=== PATIENT | male | born 1945 | race Caucasian/White ===

== ENCOUNTER 2016-10-23 10:03 | Day surgery (SDC) | payer MEDICARE ==
[~2016-10-23] VITALS: Ht 177.8 cm; Wt 107.3 kg
[2016-10-23] MEDS ORDERED: SODIUM CHLORIDE 0.9% 1,000 ML IV ONE (10:39)
[2016-10-23] MEDS ORDERED: PLEASE ENTER HEIGHT AND WEIGHT MC SCH (11:30)
[2016-10-23] MEDS ORDERED: LOSA1TAB17 PO (12:21)
[2016-10-23] MEDS ORDERED: INSU100V8 SQ (12:21)
[2016-10-23] MEDS ORDERED: GLIP5TAB10 PO (12:21)
[2016-10-23] MEDS ORDERED: GABA600T2 PO (12:21)
[2016-10-23] MEDS ORDERED: OMEG100023 PO (12:21)
[2016-10-23] MEDS ORDERED: ASPI-496 PO (12:21)
[2016-10-23] MEDS ORDERED: DULO30CA2 PO (12:21)
[2016-10-23] MEDS ORDERED: CALC300T5 PO (12:22)
[2016-10-23] MEDS ORDERED: NIAC500T9 PO (12:22)
[2016-10-23] MEDS ORDERED: METF10002 PO (12:22)
[2016-10-23] MEDS ORDERED: MAGN400T36 PO (12:22)
[2016-10-23] MEDS ORDERED: DICL100G8 TP (12:22)
[2016-10-23] MEDS ORDERED: beta blocker PO (12:22)
[2016-10-23] MEDS ORDERED: HEPARIN 1,000 UNITS/ML, 10ML ONE (12:41)
[2016-10-23] MEDS ORDERED: BIVALIRUDIN 250 MG ONE (12:41)
[2016-10-23] MEDS ORDERED: NITROGLYCERIN 5 MG/ML, 10ML ONE (12:41)
[2016-10-23] MEDS ORDERED: FENTANYL PF 100 MCG/2ML ONE (12:41)
[2016-10-23] MEDS ORDERED: VERAPAMIL 2.5 MG/ML, 2ML ONE (12:41)
[2016-10-23] MEDS ORDERED: TICAGRELOR 90 MG TABLET ONE (12:41)
[2016-10-23] MEDS ORDERED: MIDAZOLAM 1 MG/ML, 5ML ONE (12:41)
[2016-10-23] MEDS ORDERED: LIDOCAINE 2%, 20ML ONE (12:42)
[2016-10-23 12:58] LABS: ASPARTATE AMINO TRANSFERASE 27 U/L (15-37); BLOOD UREA NITROGEN 28 mg/dL (7-18)
[2016-10-23] MEDS ORDERED: SODIUM CHLORIDE 0.9% 1,000 ML IV SCH (14:06)
[2016-10-23] MEDS ORDERED: ISOS30TA8 PO (15:38)
== END 2016-10-23 16:50 | disposition home or self-care (01) ==
LOC: CACL 10:03 → 5SO 13:41 → DCLOUNGE 16:31 → CACL 16:50
PROVIDERS: ATTEND Internal Medicine Cardiovascular Disease
DX: I25.119 Atherosclerotic heart disease of native coronary artery with unspecified angina pectoris (principal); I10 Essential (primary) hypertension; E11.9 Type 2 diabetes mellitus without complications; E78.1 Pure hyperglyceridemia; Z79.82 Long term (current) use of aspirin; Z72.89 Other problems related to lifestyle
CPT/HCPCS: 36415; 71020; 80053; 85025; 85610; 85730; 93306; 93458; 99156; 99157; C1769; C1894; J1644; J2250; J3010; J3490; Q9967; J0583

== ENCOUNTER → 2016-10-27 | Outpatient (CLI) | payer MEDICARE ==
[~2016-10-27] MED LIST: ASPI-496 PO; CALC300T5 PO; DICL100G8 TP; DULO30CA2 PO; GABA600T2 PO; GLIP5TAB10 PO; INSU100V8 SQ; ISOS30TA8 PO; LOSA1TAB17 PO; MAGN400T36 PO; METF10002 PO; NIAC500T9 PO; OMEG100023 PO; OMNIPAQUE 350 MG/ML, 100ML BOTTLE ONE; beta blocker PO
== END | disposition home or self-care (01) ==
LOC: CFH 14:25
PROVIDERS: ATTEND Thoracic Surgery (Cardiothoracic Vascular Surgery)
DX: I61.6 Nontraumatic intracerebral hemorrhage, multiple localized (principal); I10 Essential (primary) hypertension; I25.119 Atherosclerotic heart disease of native coronary artery with unspecified angina pectoris; E11.9 Type 2 diabetes mellitus without complications; E78.5 Hyperlipidemia, unspecified; E78.00 Pure hypercholesterolemia, unspecified
CPT/HCPCS: 70460; Q9967

== ENCOUNTER 2016-10-30 04:10 | Inpatient (IN) | payer MEDICARE ==
[2016-10-29 13:51] LABS: HEMATOCRIT 41.6 % (39.2-51.8); HEMOGLOBIN 13.9 g/dL (13.7-18.0); WHITE BLOOD COUNT 11.2 x10^3/uL (3.4-10)
[2016-10-29 14:02] LABS: ASPARTATE AMINO TRANSFERASE 21 U/L (15-37); BLOOD UREA NITROGEN 26 mg/dL (7-18)
[~2016-10-30] VITALS: Ht 177.8 cm; Wt 115.6 kg
[~2016-10-30 04:10] MED LIST changes: +ACET-1600 PO; +FISH1CAP PO; -OMNIPAQUE 350 MG/ML, 100ML BOTTLE ONE
[2016-10-30 04:20] VITALS: BP_SYST 146; BP_SYST 157; BP_SYST 170; BP_SYST 171; BP_DIAS 76; BP_DIAS 78; BP_DIAS 81
[2016-10-30 04:30] VITALS: BP_SYST 146; BP_SYST 165; BP_DIAS 76; BP_DIAS 79
[2016-10-30] MEDS ORDERED: ALBUMIN HUMAN 5% 500 ML IV ONE (04:30)
[2016-10-30] MEDS ORDERED: ATOR40TA78 PO (04:40)
[2016-10-30] MEDS ORDERED: ISOS30TA8 PO (04:40)
[2016-10-30] MEDS ORDERED: METO25TA4 PO (04:40)
[2016-10-30] MEDS ORDERED: METOPROLOL TARTRATE 25 MG TABLET PO ONE (05:00)
[2016-10-30 05:34] VITALS: BP_SYST 176; BP_DIAS 80; BP_DIAS 84
[2016-10-30] MEDS ORDERED: CHLORHEXIDINE MOUTHWASH 15 ML UDC MM SCH (06:00)
[2016-10-30] MEDS ORDERED: DO NOT GIVE MC SCH (06:00)
[2016-10-30] MEDS: MUPIROCIN OINT 2%, 22GM TP SCH ×2 (06:00→21:00)
[2016-10-30] MEDS ORDERED: ACETAMINOPHEN 325 MG TABLET PO PRN (06:00)
[2016-10-30] MEDS ORDERED: INSULIN ASPART 100 UNITS/ML, PEN SQ-INSULIN SCH (06:00)
[2016-10-30 06:34] VITALS: BP 164/75
[2016-10-30] MEDS ORDERED: MIDAZOLAM 10MG/2 ML ONE (06:51)
[2016-10-30] MEDS ORDERED: FENTANYL PF 1000 MCG/20ML ONE (06:51)
[2016-10-30] MEDS ORDERED: POTASSIUM CHLORIDE 80 MEQ, SODIUM BICARBONATE 8.4% 10 MEQ, MAGNESIUM SULFATE 0.5 GM, LI... IV PRN (07:30)
[2016-10-30] MEDS ORDERED: VANCOMYCIN 1,700 MG in SODIUM CHLORIDE 0.9% 250 ML IV PRN (07:30)
[2016-10-30] MEDS ORDERED: DEXMEDETOMIDINE 200 MCG in SODIUM CHLORIDE 0.9% 48 ML IV SCH (07:30)
[2016-10-30] MEDS ORDERED: REGULAR INSULIN 62.5 UNITS in SODIUM CHLORIDE 0.9% 249.375 ML IV PRN (07:30)
[2016-10-30] MEDS ORDERED: MANNITOL PMX 20% 500 ML IVPB PRN (07:30)
[2016-10-30] MEDS ORDERED: PHENYLEPHRINE 10 MG in SODIUM CHLORIDE 0.9% 249 ML IV PRN ×2 (07:30→12:29)
[2016-10-30] MEDS ORDERED: EPINEPHRINE 2 MG in SODIUM CHLORIDE 0.9% 248 ML IV SCH (07:30)
[2016-10-30] MEDS ORDERED: CEFUROXIME 1.5 GM in SODIUM CHLORIDE 0.9% 50 ML IVPB PRN (07:30)
[2016-10-30] MEDS ORDERED: ROCURONIUM 10 MG/ML ONE (08:07)
[2016-10-30] MEDS ORDERED: PROPOFOL 10 MG/ML, 20ML ONE (08:07)
[2016-10-30] MEDS ORDERED: SODIUM CHLORIDE FLUSH 10ML SYR IVF SCH (09:00)
[2016-10-30] MEDS ORDERED: HEPARIN 1,000 UNITS/ML, 10ML IV ONE (09:44)
[2016-10-30] MEDS ORDERED: PAPAVERINE 30 MG/ML, 2ML IVPush ONE (09:44)
[2016-10-30] MEDS ORDERED: PROTAMINE SULFATE 10 MG/ML, 25ML ONE (12:26)
[2016-10-30] MEDS ORDERED: ALBUMIN HUMAN 25% 50 ML ONE (12:26)
[2016-10-30] MEDS ORDERED: AMINOCAPROIC ACID 250 MG/ML, 20ML ONE (12:26)
[2016-10-30] MEDS ORDERED: CALCIUM CHLORIDE 10%, 10ML SYR ONE (12:26)
[2016-10-30] MEDS ORDERED: SODIUM BICARB 8.4%, 50ML SYRINGE ONE (12:26)
[2016-10-30] MEDS ORDERED: LIDOCAINE 2% 100MG/5ML SYRINGE ONE (12:27)
[2016-10-30] MEDS ORDERED: HEPARIN 1,000 UNITS/ML, 10ML ONE (12:27)
[2016-10-30] MEDS ORDERED: PAPAVERINE 30 MG/ML, 2ML ONE (12:27)
[2016-10-30] MEDS ORDERED: VASOPRESSIN 20 UNIT/ML, 1ML ONE (12:27)
[2016-10-30] MEDS ORDERED: HEPARIN 1,000 UNITS/ML, 30ML ONE (12:27)
[2016-10-30] MEDS ORDERED: DOBUTAMINE 250 MG in SODIUM CHLORIDE 0.9% 230 ML IV PRN (12:29)
[2016-10-30] MEDS ORDERED: SODIUM CHLORIDE 0.9% 1,000 ML IV PRN (12:29)
[2016-10-30] MEDS ORDERED: SODIUM CHLORIDE 0.9% 1,000 ML IV ONE (12:29)
[2016-10-30] MEDS ORDERED: NITROGLYCERIN/D5W PMX 250 ML IV PRN (12:29)
[2016-10-30] MEDS ORDERED: LACTATED RINGERS 500 ML IVBOLUS PRN (12:30)
[2016-10-30] MEDS ORDERED: BISACODYL 10 MG SUPP PR PRN (12:30)
[2016-10-30] MEDS ORDERED: DEXTROSE 50%, 50ML SYRINGE IVPush PRN (12:30)
[2016-10-30] MEDS ORDERED: DEXTROSE 4 GM TAB.CHEW PO PRN (12:30)
[2016-10-30] MEDS ORDERED: PROCHLORPERAZINE 5 MG/ML, 2ML IVPush PRN (12:30)
[2016-10-30] MEDS: KSCALE TO 4.5 IV SCH ×2 (12:30→18:30)
[2016-10-30] MEDS ORDERED: MEPERIDINE/PF 25MG/0.5ML IVPush PRN (12:30)
[2016-10-30] MEDS ORDERED: SODIUM BICARB 8.4%, 50ML SYRINGE IV PRN (12:30)
[2016-10-30] MEDS ORDERED: BISACODYL 5 MG EC TABLET PO PRN (12:30)
[2016-10-30] MEDS ORDERED: ACETAMINOPHEN 650 MG SUPP PR PRN (12:30)
[2016-10-30] MEDS ORDERED: GLUCAGON 1 MG IM PRN (12:30)
[2016-10-30] MEDS ORDERED: ONDANSETRON 2MG/ML, 2ML IVPush PRN (12:30)
[2016-10-30] MEDS ORDERED: MIDAZOLAM 1 MG/ML, 5ML IVPush PRN (12:30)
[2016-10-30] MEDS ORDERED: EPINEPHRINE 2 MG in SODIUM CHLORIDE 0.9% 248 ML IV PRN (12:30)
[2016-10-30 12:59] LABS: ABG COLLECTION SITE ARTERIAL LINE
[2016-10-30 13:00] LABS: HEMATOCRIT 31.9 % (39.2-51.8); HEMOGLOBIN 10.7 g/dL (13.7-18.0)
[2016-10-30] MEDS: MAGNESIUM SULFATE 1 GM in SODIUM CHLORIDE 0.9% 50 ML IVPB SCH (13:05)
[2016-10-30] MEDS: DEXMEDETOMIDINE 200 MCG in SODIUM CHLORIDE 0.9% 48 ML IV PRN (14:28)
[2016-10-30 17:14] VITALS: BP 119/52
[2016-10-30] MEDS: morphine SULFATE 10 MG/ML, 1ML IVPush PRN ×2 (17:30→20:38)
[2016-10-30 18:34] LABS: HEMATOCRIT 32.6 % (39.2-51.8); HEMOGLOBIN 10.7 g/dL (13.7-18.0)
[2016-10-30] MEDS: CEFUROXIME 1.5 GM in SODIUM CHLORIDE 0.9% 50 ML IVPB SCH (19:26)
[2016-10-30] MEDS: DOCUSATE 100 MG CAPSULE PO SCH (21:00)
[2016-10-30] MEDS: VANCOMYCIN 1,600 MG in SODIUM CHLORIDE 0.9% 250 ML IVPB SCH (22:01)
[2016-10-30] MEDS: SODIUM CHLORIDE FLUSH 10ML SYR IVF SCH (22:02)
[2016-10-30] MEDS: MUPIROCIN OINT 2%, 22GM NAS SCH (22:02)
[2016-10-31] MEDS: KSCALE TO 4.5 IV SCH ×4 (00:30→16:59)
[2016-10-31 00:47] LABS: HEMOGLOBIN 10.6 g/dL (13.7-18.0)
[2016-10-31] MEDS: DEXMEDETOMIDINE 200 MCG in SODIUM CHLORIDE 0.9% 48 ML IV PRN ×2 (01:58→05:01)
[2016-10-31] MEDS: morphine SULFATE 10 MG/ML, 1ML IVPush PRN ×3 (04:29→21:04)
[2016-10-31 05:02] VITALS: BP 134/60
[2016-10-31 05:26] LABS: HEMOGLOBIN 9.7 g/dL (13.7-18.0); WHITE BLOOD COUNT 16.2 x10^3/uL (3.4-10)
[2016-10-31 05:34] LABS: ABG COLLECTION SITE ARTERIAL LINE
[2016-10-31 05:38] LABS: BLOOD UREA NITROGEN 25 mg/dL (7-18)
[2016-10-31] MEDS: OXYcodone IR 5MG TABLET PO PRN ×3 (08:50→19:26)
[2016-10-31] MEDS: VANCOMYCIN 1,600 MG in SODIUM CHLORIDE 0.9% 250 ML IVPB SCH (08:57)
[2016-10-31] MEDS: CEFUROXIME 1.5 GM in SODIUM CHLORIDE 0.9% 50 ML IVPB SCH (08:57)
[2016-10-31] MEDS: METOPROLOL TARTRATE 25 MG TABLET PO/NG SCH ×2 (09:00→21:52)
[2016-10-31] MEDS: PANTOPRAZOLE 40 MG IV IVPush SCH (09:03)
[2016-10-31] MEDS: DOCUSATE 100 MG CAPSULE PO SCH ×2 (09:03→21:52)
[2016-10-31] MEDS: ASPIRIN 81 MG TABLET EC PO SCH (09:03)
[2016-10-31] MEDS: MUPIROCIN OINT 2%, 22GM NAS SCH ×2 (09:04→21:52)
[2016-10-31] MEDS: SODIUM CHLORIDE FLUSH 10ML SYR IVF SCH ×2 (09:07→21:07)
[2016-10-31] MEDS: HYDROcodone/APAP 10/325 MG TABLET PO PRN ×2 (09:30→13:58)
[2016-10-31] MEDS: MUPIROCIN OINT 2%, 22GM TP SCH ×2 (09:31→21:53)
[2016-10-31] MEDS: REGULAR INSULIN 62.5 UNITS in SODIUM CHLORIDE 0.9% 249.375 ML IV PRN (11:49)
[2016-10-31] MEDS: MAGNESIUM SULFATE 1 GM in SODIUM CHLORIDE 0.9% 50 ML IVPB SCH (11:57)
[2016-10-31] MEDS: CHLORHEXIDINE MOUTHWASH 15 ML UDC MM SCH (13:04)
[2016-10-31 13:08] LABS: HEMATOCRIT 29.8 % (39.2-51.8); HEMOGLOBIN 9.9 g/dL (13.7-18.0)
[2016-10-31] MEDS: ACETAMINOPHEN 325 MG TABLET PO PRN (20:39)
[2016-11-01] MEDS ORDERED: SODIUM CHLORIDE 0.9%, 500ML IVBOLUS ONE ×2 (02:00→09:00)
[2016-11-01] MEDS: CHLORHEXIDINE MOUTHWASH 15 ML UDC MM SCH ×2 (02:06→12:02)
[2016-11-01] MEDS: REGULAR INSULIN 62.5 UNITS in SODIUM CHLORIDE 0.9% 249.375 ML IV PRN (02:43)
[2016-11-01 05:00] VITALS: BP 118/54
[2016-11-01 05:36] LABS: ABG COLLECTION SITE RIGHT RADIAL; COLLATERAL CIRCULATION TESTING NORMAL
[2016-11-01 05:55] LABS: BLOOD UREA NITROGEN 40 mg/dL (7-18)
[2016-11-01 06:19] LABS: HEMATOCRIT 28.2 % (39.2-51.8); HEMOGLOBIN 9.5 g/dL (13.7-18.0); WHITE BLOOD COUNT 19.9 x10^3/uL (3.4-10)
[2016-11-01] MEDS ORDERED: ENOXAPARIN 40 MG/0.4 ML SQ SCH (09:00)
[2016-11-01] MEDS: METOPROLOL TARTRATE 25 MG TABLET PO/NG SCH ×2 (09:00→20:32)
[2016-11-01] MEDS: MUPIROCIN OINT 2%, 22GM NAS SCH ×2 (09:17→20:33)
[2016-11-01] MEDS: PANTOPRAZOLE 40 MG IV IVPush SCH (09:17)
[2016-11-01] MEDS: ASPIRIN 81 MG TABLET EC PO SCH (09:17)
[2016-11-01] MEDS: DOCUSATE 100 MG CAPSULE PO SCH ×2 (09:17→20:33)
[2016-11-01] MEDS: SODIUM CHLORIDE FLUSH 10ML SYR IVF SCH ×2 (09:17→20:33)
[2016-11-01] MEDS: MAGNESIUM SULFATE 1 GM in SODIUM CHLORIDE 0.9% 50 ML IVPB SCH (11:11)
[2016-11-01] MEDS ORDERED: FUROSEMIDE 20 MG/2 ML IV ONE (11:30)
[2016-11-01] MEDS: INSULIN ASPART 100 UNITS/ML, PEN SQ-INSULIN PRN ×3 (12:16→18:04)
[2016-11-01] MEDS ORDERED: FUROSEMIDE 40 MG/4 ML IV ONE ×2 (15:30→16:00)
[2016-11-01] MEDS ORDERED: FUROSEMIDE 20 MG/2 ML ONE (15:51)
[2016-11-01 15:53] LABS: ABG COLLECTION SITE RIGHT RADIAL
[2016-11-01 15:54] LABS: COLLATERAL CIRCULATION TESTING NORMAL
[2016-11-01] MEDS: ACETAMINOPHEN 325 MG TABLET PO PRN (20:32)
[2016-11-02] MEDS: HYDROcodone/APAP 10/325 MG TABLET PO PRN (00:33)
[2016-11-02] MEDS: CHLORHEXIDINE MOUTHWASH 15 ML UDC MM SCH (00:33)
[2016-11-02 04:33] LABS: ABG COLLECTION SITE RIGHT RADIAL; COLLATERAL CIRCULATION TESTING NORMAL
[2016-11-02 04:38] LABS: BLOOD UREA NITROGEN 68 mg/dL (7-18)
[2016-11-02] MEDS: INSULIN ASPART 100 UNITS/ML, PEN SQ-INSULIN PRN (04:58)
[2016-11-02 05:00] VITALS: BP 134/59
[2016-11-02] MEDS: INSULIN ASPART 100 UNITS/ML, PEN SQ-INSULIN SCH ×4 (08:45→20:48)
[2016-11-02] MEDS ORDERED: FUROSEMIDE 40 MG/4 ML ONE (08:47)
[2016-11-02] MEDS: METOPROLOL TARTRATE 25 MG TABLET PO/NG SCH ×2 (09:00→20:47)
[2016-11-02] MEDS: PANTOPRAZOLE 40 MG IV IVPush SCH (09:04)
[2016-11-02] MEDS: DOCUSATE 100 MG CAPSULE PO SCH ×2 (09:04→20:47)
[2016-11-02] MEDS: SODIUM CHLORIDE FLUSH 10ML SYR IVF SCH ×2 (09:04→20:47)
[2016-11-02] MEDS: MUPIROCIN OINT 2%, 22GM NAS SCH ×2 (09:04→20:47)
[2016-11-02] MEDS: ASPIRIN 81 MG TABLET EC PO SCH (09:05)
[2016-11-02] MEDS: CLOPIDOGREL 75 MG TABLET PO SCH (09:05)
[2016-11-02] MEDS: FUROSEMIDE 20 MG/2 ML IV SCH ×2 (09:16→20:47)
[2016-11-02 09:52] LABS: FERRITIN 23809.5 ng/mL (26-388)
[2016-11-02 09:59] LABS: POTASSIUM,URINE RANDOM 23 mmol/L
[2016-11-02] MEDS: hydrALAzine 20 MG/ML, 1ML IV PRN ×2 (14:07→21:40)
[2016-11-02] MEDS: OXYcodone IR 5MG TABLET PO PRN ×2 (14:36→22:33)
[2016-11-02] MEDS ORDERED: DO NOT GIVE MC SCH (20:00)
[2016-11-02] MEDS ORDERED: BISACODYL 5 MG EC TABLET PO PRN ×2 (20:00)
[2016-11-02] MEDS ORDERED: DEXTROSE 50%, 50ML SYRINGE IVPush PRN ×2 (20:00)
[2016-11-02] MEDS ORDERED: DEXTROSE 4 GM TAB.CHEW PO PRN ×2 (20:00)
[2016-11-02] MEDS ORDERED: SODIUM CHLORIDE 0.9% 1,000 ML IV PRN (20:00)
[2016-11-02] MEDS ORDERED: ACETAMINOPHEN 650 MG SUPP PR PRN ×2 (20:00)
[2016-11-02] MEDS ORDERED: GLUCAGON 1 MG IM PRN (20:00)
[2016-11-02] MEDS ORDERED: BISACODYL 10 MG SUPP PR PRN (20:00)
[2016-11-02] MEDS ORDERED: ONDANSETRON 2MG/ML, 2ML IVPush PRN (20:00)
[2016-11-02] MEDS ORDERED: PROCHLORPERAZINE 5 MG/ML, 2ML IVPush PRN (20:00)
[2016-11-02] MEDS ORDERED: INSULIN ASPART 100 UNITS/ML, PEN SQ-INSULIN SCH ×2 (23:00)
[2016-11-03] MEDS: INSULIN ASPART 100 UNITS/ML, PEN SQ-INSULIN SCH ×5 (01:39→20:40)
[2016-11-03 04:36] LABS: HEMATOCRIT 28.8 % (39.2-51.8); HEMOGLOBIN 9.6 g/dL (13.7-18.0); WHITE BLOOD COUNT 13.4 x10^3/uL (3.4-10)
[2016-11-03 04:37] LABS: BLOOD UREA NITROGEN 72 mg/dL (7-18)
[2016-11-03 04:57] LABS: ASPARTATE AMINO TRANSFERASE 2214 U/L (15-37)
[2016-11-03 05:10] VITALS: BP 132/52
[2016-11-03] MEDS: hydrALAzine 20 MG/ML, 1ML IV PRN ×2 (05:46→23:23)
[2016-11-03] MEDS: ASPIRIN 81 MG TABLET EC PO SCH (08:16)
[2016-11-03] MEDS: CLOPIDOGREL 75 MG TABLET PO SCH (08:16)
[2016-11-03] MEDS: DOCUSATE 100 MG CAPSULE PO SCH ×2 (08:16→20:39)
[2016-11-03] MEDS: PANTOPRAZOLE 40 MG IV IVPush SCH (08:17)
[2016-11-03] MEDS: FUROSEMIDE 20 MG/2 ML IV SCH ×2 (08:17→20:39)
[2016-11-03] MEDS: MUPIROCIN OINT 2%, 22GM NAS SCH ×2 (08:17→20:39)
[2016-11-03] MEDS ORDERED: MAGNESIUM HYDROXIDE 8%, 30ML UDC PO PRN (08:30)
[2016-11-03] MEDS: SODIUM CHLORIDE FLUSH 10ML SYR IVF SCH ×3 (09:38→20:39)
[2016-11-03] MEDS: METOPROLOL TARTRATE 50 MG TABLET PO SCH ×2 (09:38→16:07)
[2016-11-03] MEDS ORDERED: LACTULOSE 10 GM/15 ML UDC PO PRN (15:30)
[2016-11-04] MEDS: METOPROLOL TARTRATE 50 MG TABLET PO SCH ×3 (01:10→17:41)
[2016-11-04 05:00] VITALS: BP 125/58
[2016-11-04 06:37] LABS: ASPARTATE AMINO TRANSFERASE 739 U/L (15-37); BLOOD UREA NITROGEN 68 mg/dL (7-18)
[2016-11-04] MEDS: INSULIN ASPART 100 UNITS/ML, PEN SQ-INSULIN SCH ×4 (07:00→21:21)
[2016-11-04 08:00] VITALS: BP 119/52
[2016-11-04] MEDS: SODIUM CHLORIDE FLUSH 10ML SYR IVF SCH ×4 (09:00→21:18)
[2016-11-04] MEDS: MUPIROCIN OINT 2%, 22GM NAS SCH ×2 (09:00→21:24)
[2016-11-04] MEDS: ASPIRIN 81 MG TABLET EC PO SCH (09:03)
[2016-11-04] MEDS: DOCUSATE 100 MG CAPSULE PO SCH ×2 (09:03→21:22)
[2016-11-04] MEDS: CLOPIDOGREL 75 MG TABLET PO SCH (09:03)
[2016-11-04] MEDS: FUROSEMIDE 20 MG/2 ML IV SCH ×2 (09:03→21:23)
[2016-11-04] MEDS: PANTOPRAZOLE 40 MG IV IVPush SCH (09:03)
[2016-11-04 13:21] VITALS: BP 143/76
[2016-11-04 20:30] VITALS: BP 152/61
[2016-11-04] MEDS ORDERED: GABAPENTIN 300 MG CAPSULE PO SCH (21:00)
[2016-11-04] MEDS: DULOXETINE 30 MG CAPSULE.DR PO SCH (21:23)
[2016-11-05 01:02] VITALS: BP 130/62
[2016-11-05] MEDS: METOPROLOL TARTRATE 50 MG TABLET PO SCH ×3 (01:05→16:26)
[2016-11-05 05:42] LABS: ASPARTATE AMINO TRANSFERASE 356 U/L (15-37); BLOOD UREA NITROGEN 57 mg/dL (7-18); TOTAL IRON BINDING CAPACITY 243 mcg/dL (250-450)
[2016-11-05 06:40] VITALS: BP 122/66
[2016-11-05] MEDS: CLOPIDOGREL 75 MG TABLET PO SCH (09:27)
[2016-11-05] MEDS: INSULIN ASPART 100 UNITS/ML, PEN SQ-INSULIN SCH ×4 (09:27→21:13)
[2016-11-05] MEDS: DOCUSATE 100 MG CAPSULE PO SCH ×2 (09:27→21:14)
[2016-11-05] MEDS: FUROSEMIDE 20 MG/2 ML IV SCH ×2 (09:28→21:14)
[2016-11-05] MEDS: GABAPENTIN 300 MG CAPSULE PO SCH ×3 (09:28→21:14)
[2016-11-05] MEDS: ASPIRIN 81 MG TABLET EC PO SCH (09:28)
[2016-11-05] MEDS: DULOXETINE 30 MG CAPSULE.DR PO SCH (09:28)
[2016-11-05] MEDS: MUPIROCIN OINT 2%, 22GM NAS SCH ×2 (09:29→21:14)
[2016-11-05] MEDS: SODIUM CHLORIDE FLUSH 10ML SYR IVF SCH ×3 (09:29→21:23)
[2016-11-05 12:48] VITALS: BP 114/67
[2016-11-05 16:24] VITALS: BP 112/64
[2016-11-05 19:59] VITALS: BP 116/60
[2016-11-06] MEDS: METOPROLOL TARTRATE 50 MG TABLET PO SCH ×3 (00:30→16:38)
[2016-11-06 01:58] VITALS: BP 121/72
[2016-11-06 04:48] LABS: HEMATOCRIT 28.8 % (39.2-51.8); HEMOGLOBIN 9.5 g/dL (13.7-18.0)
[2016-11-06 04:58] LABS: BLOOD UREA NITROGEN 57 mg/dL (7-18)
[2016-11-06] MEDS ORDERED: PANTOPROZOLE 40MG TABLET PO SCH (07:30)
[2016-11-06 08:26] VITALS: BP 145/68
[2016-11-06] MEDS ORDERED: POTASSIUM CHLORIDE 20 MEQ TAB.ER.PRT PO SCH (08:30)
[2016-11-06] MEDS: INSULIN ASPART 100 UNITS/ML, PEN SQ-INSULIN SCH ×3 (08:41→16:38)
[2016-11-06] MEDS: CLOPIDOGREL 75 MG TABLET PO SCH (08:43)
[2016-11-06] MEDS: GABAPENTIN 300 MG CAPSULE PO SCH ×2 (08:43→16:38)
[2016-11-06] MEDS: ASPIRIN 81 MG TABLET EC PO SCH (08:43)
[2016-11-06] MEDS: SODIUM CHLORIDE FLUSH 10ML SYR IVF SCH (08:43)
[2016-11-06] MEDS: DOCUSATE 100 MG CAPSULE PO SCH (08:43)
[2016-11-06] MEDS: DULOXETINE 30 MG CAPSULE.DR PO SCH (08:43)
[2016-11-06] MEDS: MUPIROCIN OINT 2%, 22GM NAS SCH (08:44)
[2016-11-06 13:15] VITALS: BP 120/72
[2016-11-06] MEDS ORDERED: POTASSIUM CHLORIDE 20 MEQ TAB.ER.PRT PO ONE (15:30)
[2016-11-06] MEDS ORDERED: PANT40TA5 PO (15:54)
[2016-11-06] MEDS ORDERED: CLOP75TA PO (15:54)
[2016-11-06] MEDS ORDERED: TRAM50TA2 PO (15:54)
[2016-11-06] MEDS ORDERED: METO50TA82 PO (15:54)
[2016-11-06 17:15] LABS: PATH.CAST-FLAG NOT PRESENT; SPERM-FLAG NOT PRESENT; SRC-FLAG NOT PRESENT; XTAL-FLAG NOT PRESENT; YLC-FLAG NOT PRESENT
== END 2016-11-06 19:11 | DRG 235 ==
LOC: 5SO 04:10 → CCU 09:55 → 5SO 11-04 13:18
PROVIDERS: ADMIT Thoracic Surgery (Cardiothoracic Vascular Surgery); ATTEND Thoracic Surgery (Cardiothoracic Vascular Surgery)
PROC: 06BQ4ZZ Excision of Left Saphenous Vein, Percutaneous Endoscopic Approach (ICD-10-PCS; 2016-10-30)
PROC: 06BP4ZZ Excision of Right Saphenous Vein, Percutaneous Endoscopic Approach (ICD-10-PCS; 2016-10-30)
PROC: 6A550Z2 Pheresis of Platelets, Single (ICD-10-PCS; 2016-10-30)
PROC: 5A1945Z Respiratory Ventilation, 24-96 Consecutive Hours (ICD-10-PCS; 2016-10-30)
PROC: 5A1221Z Performance of Cardiac Output, Continuous (ICD-10-PCS; 2016-10-30)
PROC: 5A02210 Assistance with Cardiac Output using Balloon Pump, Continuous (ICD-10-PCS; 2016-10-30)
PROC: 5A1223Z Performance of Cardiac Pacing, Continuous (ICD-10-PCS; 2016-10-30)
PROC: 021209W Bypass Coronary Artery, Three Arteries from Aorta with Autologous Venous Tissue, Open Approach (ICD-10-PCS; principal; 2016-10-30 08:00)
PROC: 0T9B70Z Drainage of Bladder with Drainage Device, Via Natural or Artificial Opening (ICD-10-PCS; 2016-11-02)
DX: I25.119 Atherosclerotic heart disease of native coronary artery with unspecified angina pectoris (principal); N17.0 Acute kidney failure with tubular necrosis; J96.00 Acute respiratory failure, unspecified whether with hypoxia or hypercapnia; G93.41 Metabolic encephalopathy; K72.00 Acute and subacute hepatic failure without coma; E46 Unspecified protein-calorie malnutrition; I13.0 Hypertensive heart and chronic kidney disease with heart failure and stage 1 through stage 4 chronic kidney disease, or unspecified chronic kidney disease; I31.9 Disease of pericardium, unspecified; I50.32 Chronic diastolic (congestive) heart failure; D64.9 Anemia, unspecified; D72.829 Elevated white blood cell count, unspecified; E11.22 Type 2 diabetes mellitus with diabetic chronic kidney disease; E66.9 Obesity, unspecified; E78.00 Pure hypercholesterolemia, unspecified; E78.5 Hyperlipidemia, unspecified; G89.29 Other chronic pain; I25.82 Chronic total occlusion of coronary artery; E11.51 Type 2 diabetes mellitus with diabetic peripheral angiopathy without gangrene; N18.3 Chronic kidney disease, stage 3 (moderate); N25.0 Renal osteodystrophy; Z79.4 Long term (current) use of insulin; Z87.891 Personal history of nicotine dependence; Z95.5 Presence of coronary angioplasty implant and graft; Z79.899 Other long term (current) drug therapy; Z68.36 Body mass index [BMI] 36.0-36.9, adult
CPT/HCPCS: 36415; 36600; 71010; 71020; 80048; 80053; 81001; 81003; 82040; 82140; 82150; 82306; 82330; 82436; 82550; 82570; 82728; 82800; 82803; 82810; 82947; 82962; 83036; 83540; 83550; 83690; 83735; 83935; 83970; 84100; 84132; 84133; 84295; 84300; 84550; 85014; 85018; 85025; 85049; 85347; 85610; 85730; 86704; 86706; 86708; 86803; 86850; 86900; 86923; 87040; 87081; 87086; 87205; 87340; 93005; 93312; 93321; 93325; 93880; 93970; 94002; 94003; J0697; J1644; J1815; J1940; J2250; J2270; J2704; J2720; J3010; J3370; J3475; J3480; J3490; J7120; P9045; P9047; C1751; C1760; C9113; J0171; J0360; J2370; J2440; J7030; J7040; J7050; P9035

== ENCOUNTER → 2016-11-26 | Outpatient (CLI) | payer MEDICARE ==
[~2016-11-26] MED LIST changes: +ATOR40TA78 PO; +CLOP75TA PO; +DICL100G19 TP; -DICL100G8 TP; +METO25TA4 PO; +METO50TA82 PO; +PANT40TA5 PO; +TRAM50TA2 PO
[2016-11-26 15:52] LABS: BLOOD UREA NITROGEN 18 mg/dL (7-18)
== END | disposition home or self-care (01) ==
LOC: CFH 14:30
PROVIDERS: ATTEND Nurse Practitioner Family
DX: J90 Pleural effusion, not elsewhere classified (principal); I50.20 Unspecified systolic (congestive) heart failure; J98.11 Atelectasis; I70.0 Atherosclerosis of aorta; M47.894 Other spondylosis, thoracic region
CPT/HCPCS: 36415; 71020; 80048; 83880

== ENCOUNTER 2016-11-27 10:45 | Emergency (ER) | payer MEDICARE ==
[~2016-11-27] VITALS: Ht 177.8 cm; Wt 108.0 kg
[2016-11-27 11:53] LABS: HEMATOCRIT 33.2 % (39.2-51.8); HEMOGLOBIN 10.4 g/dL (13.7-18.0); WHITE BLOOD COUNT 6.6 x10^3/uL (3.4-10)
[2016-11-27] MEDS ORDERED: SODIUM CHLORIDE FLUSH 10ML SYR IVF ONE (12:00)
[2016-11-27 12:03] LABS: ASPARTATE AMINO TRANSFERASE 25 U/L (15-37); BLOOD UREA NITROGEN 20 mg/dL (7-18)
[2016-11-27 12:08] LABS: IS PT STATUS REG ER OR PRE ER? YES
[2016-11-27 12:33] VITALS: BP 163/74
[2016-12-01] MEDS ORDERED: FURO-93 PO (13:17)
[2016-12-01] MEDS ORDERED: METO25TA35 PO (13:17)
[2016-12-01] MEDS ORDERED: SPIR25TA3 PO (17:06)
[2016-12-01] MEDS ORDERED: [UNRECOGNIZED DRUG - OTHER] PO (18:52)
[2016-12-01] MEDS ORDERED: CODEINE PO (18:52)
[2016-12-02] MEDS ORDERED: TRAM50TA2 PO (03:24)
[2016-12-03] MEDS ORDERED: AMIO200T42 PO (09:04)
[2016-12-03] MEDS ORDERED: APIX5TAB PO (09:04)
[2016-12-03] MEDS ORDERED: AMIO100T4 PO (09:32)
== END 2016-11-27 13:54 | disposition home or self-care (01) ==
LOC: ED 13:48
DX: J90 Pleural effusion, not elsewhere classified (principal); I10 Essential (primary) hypertension
CPT/HCPCS: 32555; 36415; 71010; 80053; 82150; 82945; 83615; 83880; 83986; 84157; 84484; 85025; 85610; 85730; 87015; 87070; 87075; 87102; 87116; 87205; 87206; 89051; 93005; 99285